=== PATIENT | male | born 1965 | race Two or more races ===

== ENCOUNTER 2018-08-11 21:41 | Emergency (ER) | payer MEDICAID ==
[~2018-08-11] VITALS: Ht 172.7 cm; Wt 81.6 kg
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
[2018-08-11] MEDS ORDERED: KETOROLAC TROMETHAMINE INJ 30 MG/ML VIAL ONE (22:57)
[2018-08-11] MEDS: KETOROLAC TROMETHAMINE INJ 60 MG/2 ML VIAL IM ONE (23:31)
--- NOTE | 2018-08-11 23:48 | NUR ---
pt ok to discharge per hema medrano. Patient discharged to home in stable condition. Written and verbal after care instructions given. Patient verbalizes understanding of instruction.Patient is awake and alert to self, day, and place. pt ambulatory with a steady gait
[2018-08-12 00:18] VITALS: BP 130/88
== END 2018-08-12 00:19 | disposition home or self-care (01) ==
LOC: ER 21:44
DX: S39.012A Strain of muscle, fascia and tendon of lower back, initial encounter (principal); M51.36 Other intervertebral disc degeneration, lumbar region; R07.89 Other chest pain; V43.52XA Car driver injured in collision with other type car in traffic accident, initial encounter; Y93.89 Activity, other specified; Y92.410 Unspecified street and highway as the place of occurrence of the external cause; Y99.8 Other external cause status
CPT/HCPCS: 71045; 72110; 96372; 99283; A6403; J1885